=== PATIENT | female | born 1990 | race Caucasian/White ===

== ENCOUNTER 2021-06-22 06:18 | Emergency (ER) | payer OTHER ==
[~2021-06-22] VITALS: Ht 154.9 cm; Wt 56.7 kg
== END 2021-06-22 09:42 | disposition home or self-care (01) ==
LOC: ER 06:18
DX: N92.3 Ovulation bleeding (principal); N93.9 Abnormal uterine and vaginal bleeding, unspecified

== ENCOUNTER 2023-01-24 18:35 | Emergency (ER) | payer OTHER ==
[~2023-01-24] VITALS: Ht 154.9 cm; Wt 68.0 kg
[2023-01-24] MEDS ORDERED: VENLAFAXINE HCL75 M1 PO (18:53)
[2023-01-24] MEDS ORDERED: LAMOTRIGINE25 M1 PO (18:53)
[2023-01-24] MEDS ORDERED: BUSPIRONE HCL10 MG PO (18:53)
== END 2023-01-24 20:35 | disposition home or self-care (01) ==
LOC: ER 18:35
DX: M13.0 Polyarthritis, unspecified (principal)